=== PATIENT | female | born 1950 | race Caucasian/White ===

== ENCOUNTER 2018-06-08 09:34 | Day surgery (SDC) | payer MEDICARE, OTHER ==
[~2018-06-08] VITALS: Ht 160 cm; Wt 59.0 kg
[~2018-06-08 09:34] MED LIST: ACETAMINOPHEN 325 MG TAB PO PRN; ASPI1CHW2 PO; BALANCED SALT IRRIGATION SOLUTION 500ML BAG (FOR OR EYE MACHINE) As Ordered ONE; CEFUROXIME 1MG/0.1ML INTRACAMERAL INJ As Ordered ONE; CLON0.5T8 PO; CLONPOW23 PO; CYCL10TA PO; CYCL7.5T2 PO; CYCLOPENTOLATE 2% OPHTH SOLN 2ML BTL OD ONE; FLUO40CA PO; GABA300C2 PO; GABA600T PO; HEALON DUET PRO(HEALON 10MG/ML 0.55ML & HEALON ENDOCOAT 30MG/ML 0.85ML) As Ordered ONE; IBUP600T26 PO; LIDOCAINE 1% SDV 5 ML VIAL As Ordered ONE; LIDOCAINE 3.5 % 1ML OPHTH TOPICAL GEL OU ONE; LISI5TAB PO; MIDAZOLAM INJ 2 MG/2 ML VIAL (J2250) As Ordered ONE; MORP-38 PO; OFLOXACIN 0.3 % (OCUFLOX) OPTH SOL 5ML OD ONE; OXYC30TA4 PO; PHENYLEPHRINE 2.5% OPHTH SOL 2ML OD ONE; PHENYLEPHRINE HCL 10 % OPHTH. SOL 5ML OD PRN; POVIDONE-IODINE 5% OPHTH PREP SOL 30ML As Ordered ONE; PROPARACAINE 0.5% OPHTH SOL 15ML OD PRN; PROZ40CA PO; TRAZ-160 PO; TRAZADONE; TRAZODONE PO; TROPICAMIDE 1% OPHTH SOLN 2ML OD ONE; [UNRECOGNIZED DRUG - OTHER]; fentaNYL 100 MCG/2 ML INJECTION (J3010) As Ordered ONE
[2018-06-08] MEDS ORDERED: AcetaZOLAMIDE 500 MG ER CAP As Ordered ONE (12:29)
[2018-06-08 12:40] VITALS: BP 139/88
[2018-06-08] MEDS ORDERED: KETOROLAC 0.5% OPHTH SOLN OD ONE (12:45)
[2018-06-08] MEDS ORDERED: AcetaZOLAMIDE 500 MG ER CAP PO ONE (12:45)
[2018-06-08] MEDS ORDERED: TRIMETHOBENZAMIDE 300 MG CAP PO PRN (12:45)
--- NOTE | 2018-06-09 09:44 | RO ---
DATE OF PROCEDURE: 06/08/2018 PREPROCEDURE DIAGNOSIS: Age related nuclear cataract right eye. POSTPROCEDURE DIAGNOSIS: Age related nuclear cataract right eye. PROCEDURE PERFORMED: Phacoemulsification with posterior chamber intraocular lens implantation with use of ORA. Lens used was an AU00T0, 19.5 diopters. SURGEON: Magalie Doe MD [employer]CISION LAYOUT WORKER: ANESTHESIA: Topical with sedation. DESCRIPTION OF PROCEDURE: The patient was prepped and draped in usual fashion. A lid speculum was placed between the lids. The eye was fixated. A stab incision was made into the anterior chamber. 1% nonpreserved lidocaine was instilled, and viscoelastic was instilled. The eye was refixated. A 2.4 mm keratome was used to make a clear corneal temporal limbal incision. Capsulorrhexis was begun with a cystotome and carried out in circular fashion with capsulorrhexis forceps. Lens was hydrodissected and the phacoemulsification unit used to groove the nucleus in two meridians. The nucleus was cracked into four quadrants. Each quadrant was removed with the phacoemulsification unit. Any remaining cortex was removed with the irrigation and aspiration (I and A) unit. Healon was instilled into the eye, and the pressure was checked with a handheld tonometer. The ORA unit was placed over the eye and focused on the apex of the cornea. The patient was properly aligned, and measurements were made. The measurements then gave an appropriate lens power, which was used. The intraocular lens was placed into its weigh boss and injected into the eye. Then manipulation was used to center the lens. Any remaining viscoelastic was removed with the I and A unit. The wound was hydrated, and Miochol and cefuroxime were instilled. Patient tolerated procedure well and went to recovery room in stable condition.
== END 2018-06-08 12:53 | disposition home or self-care (01) ==
LOC: M SDC 09:34
PROVIDERS: ATTEND Ophthalmology
DX: H25.11 Age-related nuclear cataract, right eye (principal); M12.9 Arthropathy, unspecified; F32.9 Major depressive disorder, single episode, unspecified; R06.83 Snoring; F41.9 Anxiety disorder, unspecified; Z79.899 Other long term (current) drug therapy; Z79.82 Long term (current) use of aspirin; Z90.710 Acquired absence of both cervix and uterus; Z86.79 Personal history of other diseases of the circulatory system; Z72.0 Tobacco use
CPT/HCPCS: 66984; J2250; J3010; V2632

== ENCOUNTER 2018-06-15 07:46 | Day surgery (SDC) | payer MEDICARE, OTHER ==
[~2018-06-15 07:46] MED LIST changes: +ACETAMINOPHEN 325 MG TAB PO; -ACETAMINOPHEN 325 MG TAB PO PRN; -ASPI1CHW2 PO; -BALANCED SALT IRRIGATION SOLUTION 500ML BAG (FOR OR EYE MACHINE) As Ordered ONE; -CEFUROXIME 1MG/0.1ML INTRACAMERAL INJ As Ordered ONE; -CLON0.5T8 PO; -CLONPOW23 PO; -CYCL10TA PO; -CYCL7.5T2 PO; -CYCLOPENTOLATE 2% OPHTH SOLN 2ML BTL OD ONE; -FLUO40CA PO; -GABA300C2 PO; -GABA600T PO; -HEALON DUET PRO(HEALON 10MG/ML 0.55ML & HEALON ENDOCOAT 30MG/ML 0.85ML) As Ordered ONE; -IBUP600T26 PO; -LIDOCAINE 1% SDV 5 ML VIAL As Ordered ONE; -LIDOCAINE 3.5 % 1ML OPHTH TOPICAL GEL OU ONE; -LISI5TAB PO; +MIDAZOLAM INJ 2 MG/2 ML VIAL (J2250) As Ordered; -MIDAZOLAM INJ 2 MG/2 ML VIAL (J2250) As Ordered ONE; -MORP-38 PO; -OFLOXACIN 0.3 % (OCUFLOX) OPTH SOL 5ML OD ONE; -OXYC30TA4 PO; -PHENYLEPHRINE 2.5% OPHTH SOL 2ML OD ONE; -PHENYLEPHRINE HCL 10 % OPHTH. SOL 5ML OD PRN; +PHENYLEPHRINE HCL 10 % OPHTH. SOL 5ML OS; -POVIDONE-IODINE 5% OPHTH PREP SOL 30ML As Ordered ONE; -PROPARACAINE 0.5% OPHTH SOL 15ML OD PRN; +PROPARACAINE 0.5% OPHTH SOL 15ML OS; -PROZ40CA PO; -TRAZ-160 PO; -TRAZADONE; -TRAZODONE PO; -TROPICAMIDE 1% OPHTH SOLN 2ML OD ONE; -[UNRECOGNIZED DRUG - OTHER]; +fentaNYL 100 MCG/2 ML INJECTION (J3010) As Ordered; -fentaNYL 100 MCG/2 ML INJECTION (J3010) As Ordered ONE
[2018-06-15] MEDS: CYCLOPENTOLATE 2% OPHTH SOLN 2ML BTL OS (08:20)
[2018-06-15] MEDS: TROPICAMIDE 1% OPHTH SOLN 2ML OS (08:20)
[2018-06-15] MEDS: PHENYLEPHRINE 2.5% OPHTH SOL 2ML OS (08:20)
[2018-06-15] MEDS: OFLOXACIN 0.3 % (OCUFLOX) OPTH SOL 5ML OS (08:20)
[2018-06-15] MEDS: LIDOCAINE 3.5 % 1ML OPHTH TOPICAL GEL OU (08:21)
[2018-06-15] MEDS: POVIDONE-IODINE 5% OPHTH PREP SOL 30ML As Ordered (08:44)
[2018-06-15] MEDS: BALANCED SALT IRRIGATION SOLUTION 500ML BAG (FOR OR EYE MACHINE) As Ordered (08:48)
[2018-06-15] MEDS: CEFUROXIME 1MG/0.1ML INTRACAMERAL INJ As Ordered (08:48)
[2018-06-15] MEDS: LIDOCAINE 1% SDV 5 ML VIAL As Ordered (08:48)
[2018-06-15] MEDS: HEALON DUET PRO(HEALON 10MG/ML 0.55ML & HEALON ENDOCOAT 30MG/ML 0.85ML) As Ordered (08:48)
[2018-06-15] MEDS: KETOROLAC 0.5% OPHTH SOLN OS (09:23)
[2018-06-15] MEDS: AcetaZOLAMIDE 500 MG ER CAP PO (09:30)
[2018-06-15] MEDS ORDERED: TRIMETHOBENZAMIDE 300 MG CAP PO (09:30)
== END 2018-06-15 10:01 | disposition home or self-care (01) ==
LOC: M SDC 07:46
DX: H25.12 Age-related nuclear cataract, left eye (principal); M12.9 Arthropathy, unspecified; F41.9 Anxiety disorder, unspecified; F32.9 Major depressive disorder, single episode, unspecified; R06.83 Snoring; Z79.899 Other long term (current) drug therapy; Z79.82 Long term (current) use of aspirin; Z86.79 Personal history of other diseases of the circulatory system; Z87.81 Personal history of (healed) traumatic fracture; Z90.710 Acquired absence of both cervix and uterus; Z72.0 Tobacco use
CPT/HCPCS: 66984